=== PATIENT | female | born 1985 | race Caucasian/White ===

== ENCOUNTER 2022-06-14 15:12 | Emergency (ER) | payer MEDICAID ==
--- NOTE | 2022-06-14 16:33 | ED Physician Documentation ---
History of Present Illness - Stated complaint Stated Complaint: MHE - Chief complaint Chief Complaint: MHE - History obtained from History obtained from: Patient - Additonal information Additional information: The patient comes to the emergency department for chief complaint of anxiety and ran out of her meds. She states she got switched to [employer] after her got out of the [place] and that she has not been able to [place] health [place]. [place] she is also reached out to [place] and has not been able to find anything there either. She has called [facility] and states that actually, her is going to switch their insurance, but this does not kick until June 27. She ran out of her Lamictal and Seroquel about a month ago, as well as her as needed diazepam. She also takes venlafaxine ER and has not very much left of that either. She states she needs her medication refills because she is having a lot of anxiety and according to a friend who is with her, erratic behavior. The patient denies any suicidal or homicidal ideation. No hallucinations. She is otherwise healthy. Review of Systems Ten Systems: 10 systems reviewed and negative Constitutional: reports: Reviewed and negative Eyes: reports: Reviewed and negative Ears: reports: Reviewed and negative Nose: reports: Reviewed and negative Throat: reports: Reviewed and negative Cardiac: reports: Reviewed and negative Respiratory: reports: Reviewed and negative GI: reports: Reviewed and negative : reports: Reviewed and negative Skin: reports: Reviewed and negative Musculoskeletal: reports: Reviewed and negative Neurologic: reports: Reviewed and negative Psychiatric: reports: Depressed, Anxiety Endocrine: reports: Reviewed and negative Immunocompromised: reports: Reviewed and negative PD PAST MEDICAL HISTORY - Past Medical History Psych: Depression, Anxiety, Panic attacks, Other - Present Medications Home Medications: Ambulatory Orders Medication Instructions Recorded Confirmed Diazepam [Valium] 5 mg PO Q8HR PRN 06/14/22 06/14/22 Quetiapine Fumarate [Seroquel] 25 mg PO HS 06/14/22 06/14/22 Quetiapine Fumarate [Seroquel] 50 mg PO HS #60 tablet 06/14/22 Venlafaxine HCl [Effexor Xr] 300 mg PO BID #120 cap 06/14/22 Venlafaxine HCl [Effexor Xr] 300 mg PO DAILY 06/14/22 06/14/22 diazePAM [Valium] 5 mg PO Q8H PRN #20 tablet 06/14/22 lamoTRIgine [LaMICtal] 50 mg PO DAILY #120 tablet 06/14/22 lamoTRIgine [Lamictal Xr] 50 mg PO DAILY 06/14/22 06/14/22 - Allergies Allergies/Adverse Reactions: Allergies Allergy/AdvReac Type Severity Reaction Status Date / Time ibuprofen AdvReac Emesis Verified 06/14/22 15:27 naproxen AdvReac Emesis Verified 06/14/22 15:27 - Social History Does the pt smoke?: No Smoking Status: Never smoker Does the pt drink ETOH?: No Does the pt have substance abuse?: Yes Substance Use and Type: Marijuana - Immunizations Immunizations are current?: Yes - POLST Patient has POLST: No PD ED PE NORMAL - Vitals Vital signs reviewed: Yes - General General: Alert and oriented X 3, No acute distress, Well developed/nourished - HEENT HEENT: Atraumatic, PERRL, EOMI, Moist mucous membranes - Neck Neck: Supple, no meningeal sign - Cardiac Cardiac: RRR, No murmur, Strong equal pulses - Respiratory Respiratory: No respiratory distress, Clear bilaterally - Abdomen Abdomen: Soft, Non tender, Non distended - Derm Derm: Normal color, Warm and dry, No rash - Extremities Extremities: No deformity - Neuro Neuro: Alert and oriented X 3 - Psych Psych: Normal mood, Normal affect Results - Vitals Vitals: Vital Signs - 24 hr 06/14/22 06/14/22 15:19 16:37 Temperature 36.8 C Heart Rate 115 H 96 Respiratory 24 18 Rate Blood Pressure 150/98 H 135/85 H O2 Saturation 96 99 Oxygen O2 Source Room air PD MEDICAL DECISION MAKING - ED course Complexity details: considered differential, d/w patient ED course: I have written prescriptions for the patient's medications. I encouraged her to establish with both primary care and mental health care as an outpatient. She does not meet any criteria for inpatient management of her symptoms and does not have any desire for inpatient management at this time. Departure - Departure Disposition: 01 Home, Self Care Clinical Impression: Anxiety Depression Qualifiers: Depression Type: major depressive disorder Major depression recurrence: recurrent Active/Remission status: currently active Major depression episode severity: mild Qualified Code(s): F33.0 - Major depressive disorder, recurrent, mild Condition: Stable Instructions: ED Stress React, ED Depression, ED Panic Attack Prescriptions: Venlafaxine HCl [Effexor Xr] 300 mg PO BID #120 cap lamoTRIgine [LaMICtal] 50 mg PO DAILY #120 tablet Quetiapine Fumarate [Seroquel] 50 mg PO HS #60 tablet diazePAM [Valium] 5 mg PO Q8H PRN #20 tablet PRN Reason: Anxiety Comments: Your prescriptions have been electronically transmitted to [facility] pharmacy in [place]. Discharge Date/Time: 06/14/22 16:38
[2022-06-14 16:38] VITALS: BP 135/85
== END 2022-06-14 16:38 | disposition home or self-care (01) ==
LOC: ED 15:12
DX: Z76.0 Encounter for issue of repeat prescription (principal); F41.9 Anxiety disorder, unspecified; F32.A Depression, unspecified
CPT/HCPCS: 99282; 99284

== ENCOUNTER 2022-06-20 10:16 | Emergency (ER) | payer MEDICAID ==
[2022-06-20 10:39] VITALS: BP 153/95
[2022-06-20] MEDS ORDERED: HYDROcod/ACETAM 5/325 MG TABLET PO STA (12:20)
[2022-06-20] MEDS ORDERED: AMOX/CLAV 875 MG/125 MG TABLET PO STA (12:20)
--- NOTE | 2022-06-20 12:22 | ED Physician Documentation ---
PD HPI PED ILLNESS - Stated complaint Stated Complaint: EAR PX - Chief complaint Chief Complaint: Heent - History obtained from History obtained from: Patient (She developed a cold 2 weeks ago. Since then she is had increasing right ear pain which is now severe with muffled hearing. No fevers.) Review of Systems Constitutional: denies: Fever, Chills Ears: reports: Loss of hearing, Ear pain. denies: Drainage/discharge Nose: reports: Rhinorrhea / runny nose PD PAST MEDICAL HISTORY - Past Medical History Psych: Depression, Anxiety, Panic attacks, Other - Present Medications Home Medications: Ambulatory Orders Medication Instructions Recorded Confirmed Diazepam [Valium] 5 mg PO Q8HR PRN 06/14/22 06/14/22 Quetiapine Fumarate [Seroquel] 25 mg PO HS 06/14/22 06/14/22 Quetiapine Fumarate [Seroquel] 50 mg PO HS #60 tablet 06/14/22 Venlafaxine HCl [Effexor Xr] 300 mg PO BID #120 cap 06/14/22 Venlafaxine HCl [Effexor Xr] 300 mg PO DAILY 06/14/22 06/14/22 diazePAM [Valium] 5 mg PO Q8H PRN #20 tablet 06/14/22 lamoTRIgine [LaMICtal] 50 mg PO DAILY #120 tablet 06/14/22 lamoTRIgine [Lamictal Xr] 50 mg PO DAILY 06/14/22 06/14/22 Amox/Clav 875/125 [Augmentin] 1 each PO Q12H #20 tablet 06/20/22 HYDROcod/ACETAM 5/325 [[place] 5/325] 1 - 2 tab PO Q6H PRN #15 tablet 06/20/22 - Allergies Allergies/Adverse Reactions: Allergies Allergy/AdvReac Type Severity Reaction Status Date / Time ibuprofen AdvReac Emesis Verified 06/20/22 10:39 naproxen AdvReac Emesis Verified 06/20/22 10:39 - Social History Does the pt smoke?: No Smoking Status: Never smoker Does the pt drink ETOH?: No Does the pt have substance abuse?: Yes - Immunizations Immunizations are current?: Yes - POLST Patient has POLST: No PD ED PE NORMAL - Vitals Vital signs reviewed: Yes - General General: Alert and oriented X 3, No acute distress - HEENT HEENT: Other (Severe right otitis media, mild left otitis media) - Neuro Neuro: Alert and oriented X 3, Normal speech - Psych Psych: Normal mood, Normal affect Results - Vitals Vitals: Vital Signs - 24 hr 06/20/22 10:37 Temperature 36.8 C Heart Rate 97 Respiratory 20 Rate Blood Pressure 153/95 H O2 Saturation 99 Oxygen O2 Source Room air Departure - Departure Disposition: 01 Home, Self Care Clinical Impression: ROM (right otitis media) Qualifiers: Otitis media type: suppurative Chronicity: acute Recurrence: non-recurrent Spontaneous tympanic membrane rupture: without spontaneous rupture Qualified Code(s): H66.001 - Acute suppurative otitis media without spontaneous rupture of ear drum, right ear Condition: Good Record reviewed to determine appropriate education?: Yes Instructions: ED Otitis Media Acute Adult Prescriptions: Amox/Clav 875/125 [Augmentin] 1 each PO Q12H #20 tablet HYDROcod/ACETAM 5/325 [[place] 5/325] 1 - 2 tab PO Q6H PRN #15 tablet PRN Reason: Pain Comments: I [facility] [place]. Return for new or worsening symptoms. Follow-up with your doctor in a week for recheck. As discussed it may be helpful to push fluids and take some cfge-idw-rzqlqlw decongestant such as Sudafed as well. I am prescribing a short course of narcotic pain medication for you. These are potentially dangerous and addictive medications that should be used carefully. These medications may constipate you. Take an wraq-xyr-wobkijg stool softener (docusate) twice daily with plenty of water while taking these medications. If you go 24 hours without a bowel movement, take hnal-pfs-zkflwld miralax, per package instructions. Do not drink or drive while taking these medications. If you received narcotic or sedating medications while in the emergency department, do not drive for 24 hours. Store this medication in a safe, secure place and out of reach of children. It is a violation of federal law to give or sell this medication to another person or to use in a manner other than prescribed. The ED will not refill narcotic prescriptions, including prescriptions lost or stolen. To dispose of unwanted medications: 1. [facility] at [address] in [place] has a medication drop box. They accept prescription medications (in pill form) Wednesday through Wednesday 9:00 a.m. to 5:00 p.m. 2. The [facility] accepts prescription medications (in pill form only) for disposal year round. Call for more information. 3. Contact the [facility] for the next [facility] sponsored prescription drug collection event. , [phone], or [phone]; Note that many narcotic pain relievers also contain Tylenol/acetaminophen. Please ensure that your total dose of acetaminophen from all sources does not exceed 3 g (3000 mg) per day.
== END 2022-06-20 12:38 | disposition home or self-care (01) ==
LOC: ED 10:16
DX: H66.001 Acute suppurative otitis media without spontaneous rupture of ear drum, right ear (principal)
CPT/HCPCS: 99282; A9270

== ENCOUNTER 2024-03-11 10:18 | Emergency (ER) | payer MEDICAID, OTHER ==
[2024-03-11 10:40] VITALS: BP 152/96; O2SAT 97
--- NOTE | 2024-03-11 11:08 | XRAY Report ---
PROCEDURE: Ankle 3+V RT INDICATIONS: Trauma TECHNIQUE: 3 views of the ankle were acquired. COMPARISON: None. FINDINGS: Bones: Prominent os trigonum. No acute displaced fracture. The ankle mortise is intact. Plantar calca ana enthesopathy. Soft tissues: Soft tissue swelling. IMPRESSION: No acute displaced osseous injury or dislocation. There is soft tissue swelling however. Consider lig amentous injury and MRI to further evaluate if needed. Reviewed by: Kolby Bella MD on 03/11/2024 11:07 AM PDT Approved by: Kolby Bella MD on 03/11/2024 11:07 AM PDT Station ID: [id number]
--- NOTE | 2024-03-11 11:09 | XRAY Report ---
PROCEDURE: Foot 3+V RT INDICATIONS: fall, R lateral foot pain TECHNIQUE: 3 views of the foot were acquired. COMPARISON: None. FINDINGS: Bones: Plantar calcaneal enthesopathy. No acute displaced fracture or dislocation. Soft tissues: No suspicious calcifications. Soft tissue swelling is present. IMPRESSION: No acute radiographic abnormality. If there is high concern for occult injury, consider repeat radiog efrain or cross-sectional imaging. There is soft tissue swelling. Reviewed by: Kolby Bella MD on 03/11/2024 11:08 AM PDT Approved by: Kolby Bella MD on 03/11/2024 11:08 AM PDT Station ID: [id number]
--- NOTE | 2024-03-11 11:18 | ED Physician Documentation ---
PD HPI LOWER EXT INJURY - Stated complaint Stated Complaint: RT FOOT INJURY - Chief complaint Chief Complaint: Trauma Ext - History obtained from History obtained from: Patient - History of Present Illness PD HPI LOW EXT INJURY LOCATION: Right, Ankle, Foot Type of injury: Fall Timing - onset: Last night Timing - duration: Days (1) Timing - details: Abrupt onset Pain level max: 7 Pain level now: 7 Improved by: Rest Worsened by: Moving Associated symptoms: No: Weakness, Numbness, Discolored - Additional information Additional information: 39-year-old female states that she tripped on a rock injuring her right foot and ankle. Occurred last night, and will bear weight today. Worse with walking, better with rest. Review of Systems Constitutional: denies: Fever, Chills GI: denies: Vomiting, Diarrhea Skin: denies: Rash Musculoskeletal: denies: Neck pain, Back pain PD PAST MEDICAL HISTORY - Past Medical History Past Medical History: Yes Psych: Depression, Anxiety, Panic attacks, Other - Past Surgical History Past Surgical History: Yes /[employer]: section, Breast reduction - Present Medications Home Medications: Ambulatory Orders Medication Instructions Recorded Confirmed Quetiapine Fumarate [Seroquel] 50 mg PO HS #60 tablet 06/14/22 03/11/24 Venlafaxine HCl [Effexor Xr] 300 mg PO BID #120 cap 06/14/22 03/11/24 diazePAM [Valium] 5 mg PO Q8HR PRN 06/14/22 03/11/24 lamoTRIgine [Lamictal Xr] 50 mg PO DAILY 06/14/22 03/11/24 HYDROcod/ACETAM 5/325 [[place] 5/325] 1 - 2 ea PO Q6H PRN #14 tablet 03/11/24 Losartan Potassium 25 mg PO DAILY 03/11/24 03/11/24 - Allergies Allergies/Adverse Reactions: Allergies Allergy/AdvReac Type Severity Reaction Status Date / Time ibuprofen AdvReac Emesis Verified 03/11/24 10:26 naproxen AdvReac Emesis Verified 03/11/24 10:26 - Social History Does the pt smoke?: No Smoking Status: Never smoker Does the pt drink ETOH?: No Does the pt have substance abuse?: Yes Substance Use and Type: Marijuana - Immunizations Immunizations are current?: Yes - POLST Patient has POLST: No PD ED PE NORMAL - Vitals Vital signs reviewed: Yes - General General: Alert and oriented X 3, No acute distress - HEENT HEENT: Moist mucous membranes - Derm Derm: Warm and dry - Extremities Extremities: Other (R ankle/foot - Tender to palpation over the base of the fifth metatarsal, also tender over the lateral malleolus. Mild swelling at the site. Neurovascular intact. No gross deformity.) - Neuro Neuro: Alert and oriented X 3 - Psych Psych: Normal mood, Normal affect Results - Vitals Vitals: Vital Signs - 24 hr 03/11/24 10:23 Temperature 36.0 C L Heart Rate 92 Respiratory 20 Rate Blood Pressure 152/96 H O2 Saturation 97 Oxygen O2 Source Room air - Rads (name of study) R ankle xray Relevant Findings:: Final report received, See rad report R foot xray Relevant Findings:: Final report received, See rad report PD Medical Decision Making - ED course Complexity details: reviewed results, re-evaluated patient, considered differential, d/w patient ED course: No acute findings on x-ray of the right foot or right ankle. Placed in a gel splint for comfort. Given crutches. Will prescribe pain medication for home. Neurovascular intact. Recommend follow-up with her PCP in 1 week if still having symptoms. Patient counseled regarding signs and symptoms for which I believe and urgent re-evaluation would be necessary. Patient with good understanding of and agreement to plan and is comfortable going home at this time This document was made in part using voice recognition software. While efforts are made to proofread this document, sound alike and grammatical errors may occur. Departure - Departure Disposition: 01 Home, Self Care Clinical Impression: Sprain of foot, right Qualifiers: Encounter type: initial encounter Qualified Code(s): S93.601A - Unspecified sprain of right foot, initial encounter Right ankle sprain Qualifiers: Encounter type: initial encounter Involved ligament of ankle: unspecified ligament Qualified Code(s): S93.401A - Sprain of unspecified ligament of right ankle, initial encounter Condition: Good Instructions: ED Sprain Foot, ED Sprain Ankle Follow-Up: Sonja Sesay ARNP [Primary Care Provider] - Prescriptions: HYDROcod/ACETAM 5/325 [[place] 5/325] 1 - 2 ea PO Q6H PRN #14 tablet PRN Reason: Pain Comments: Your x-rays do not show any acute abnormalities today. There are no fractures or dislocations. You may bear weight as tolerated. Would recommend using crutches for the next few days. We have sent pain medication to you to the [facility] pharmacy. If you are still having pain in 1 week, you should be reevaluated by your doctor. I am prescribing a short course of narcotic pain medication for you. These are potentially dangerous and addictive medications that should be used carefully. These medications may constipate you. Take an qldu-pmt-snqerie stool softener (docusate) twice daily with plenty of water while taking these medications. If you go 24 hours without a bowel movement, take lcjt-rgu-lrlgdrg miralax, per package instructions. Do not drink or drive while taking these medications. If you received narcotic or sedating medications while in the emergency department, do not drive for 24 hours. Store this medication in a safe, secure place and out of reach of children. It is a violation of federal law to give or sell this medication to another person or to use in a manner other than prescribed. The ED will not refill narcotic prescriptions, including prescriptions lost or stolen. To dispose of unwanted medications: 1. [facility] at [address] in [place] has a medication drop box. They accept prescription medications (in pill form) Wednesday through Wednesday 9:00 a.m. to 5:00 p.m. 2. The [facility] accepts prescription medications (in pill form only) for disposal year round. Call for more information. 3. Contact the [facility] for the next [facility] sponsored prescription drug collection event. , [phone], or [phone];
[2024-03-11] MEDS: HYDROcod/ACETAM 5/325 MG TABLET PO STA (11:20)
== END 2024-03-11 11:34 | disposition home or self-care (01) ==
LOC: ED 10:18
DX: S93.601A Unspecified sprain of right foot, initial encounter (principal); S93.401A Sprain of unspecified ligament of right ankle, initial encounter; W18.41XA Slipping, tripping and stumbling without falling due to stepping on object, initial encounter
CPT/HCPCS: 73610; 73630; 99283; A9270